=== PATIENT | female | born 1940 | race Caucasian/White ===

== ENCOUNTER → 2018-03-09 | Day surgery (SDC) | payer OTHER, MEDICARE ==
--- NOTE | 2018-03-10 16:49 | PATH ---
Cytology Non-Gynecological Report Patient Name: NISHANT TIAN [facility]. Rec. #: [id number] /Age/Gender: 1940 (Age: 77) / F Account: [id number] Location: RADIOLOGY INTER Taken: 03/09/2018 Received: 03/09/2018 Reported: 03/10/2018 Physicians: Gurinder Rivera M.D. Specimen(s) Received THYROID FNA RIGHT Clinical History Right thyroid nodule, 1.32 x 1.00 x 1.05 cm Final Diagnosis THYROID, RIGHT, FINE NEEDLE ASPIRATION: SATISFACTORY FOR EVALUATION. B[place] CLASS II: BENIGN. CYTOLOGIC FINDINGS ARE CONSISTENT WITH A BENIGN FOLLICULAR NODULE. SMALL FOLLICULAR CELLS WITH FOCAL METAPLASTIC CHANGES AND COLLOID PRESENT. Electronically Signed Paradise Lacey M.D. Gross Description Received are eight direct smears, four of which are air-dried and Diff-Quik stained, and four of which are alcohol fixed and Pap stained. Also received is 20 ml of bloody formalin from which one cellblock is prepared.
== END | disposition home or self-care (01) ==
LOC: JRADIR 09:50
PROVIDERS: ATTEND Internal Medicine
PROC: 0GJK3ZZ Inspection of Thyroid Gland, Percutaneous Approach (ICD-10-PCS; principal; 2018-03-09)
DX: E04.1 Nontoxic single thyroid nodule (principal)
CPT/HCPCS: 76942; 88173; 88305-TC